=== PATIENT | female | born 1980 | race Two or more races ===

== ENCOUNTER 2024-02-26 15:21 | Outpatient (AMB) | payer OTHER, SELFPAY ==
--- NOTE | 2024-02-26 15:24 | MHC.OFFVISWM ---
VS Expanded 02/26/24 15:33 BP 130/70 Blood Pressure Location Rt brachial Blood Pressure Position Sitting Pulse 85 Pulse Source Pulse Oximeter Temp 96.6 F L Temperature Source Temporal Artery Scan Pulse Oximetry 94 Oxygen Delivery Method Room Air Height 5 ft 2 in Weight 212 lb 12.8 oz BMI 38.9 Body Fat % 45.2 Body Fat Mass 96.2 Fat Free Mass 116.6 Visceral Fat Rating 12.0 Body Water % 39.2 Body Water Mass 83.4 Muscle Mass/Score 110.6 Basal Metabolic Rate/Score 1,648 Intake Visit Reasons: OV [employer] WORK[employer] SWL BMI 39.2 Patient Registration Clerk Required: No Allergies latex Allergy (Intermediate, Verified 02/26/24 15:35) rash Medication List - Last Reconciled 02/26/24 by KAYLA Cabrera albuterol sulfate 90 mcg/actuation (Ventolin HFA) 2 puffs inhalation QID PRN cholecalciferol (vitamin D3) (Vitamin D3) 25 mcg PO DAILY lisinopril-hydrochlorothiazide 10-12.5 mg 1 tab PO DAILY HPI Comments Details: Pt is here to start the [facility] Weight Management surgical weight loss program. She heard about our program on [employer]. Her goal is to lose weight and achieve a healthy lifestyle as well as to improve, if not resolve, obesity related medical conditions, including htn. She reports first being concerned about her weight over the last 5 years, highest weight to date was 230. Current weight is 212.8 pounds with a BMI of 39. She has tried multiple methods of weight loss including fad diets without permanent results. She lives with her and kids. 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 She wakes at:?6 am, and goes to bed at?10 pm. Dinner is at 5 pm. Breakfast: HB eggs or oatmeal or bagel w creamcheese AM snack: coffee w LF milk and glenn sweetener, chicken bowl or inst rice w ramen noodle soup Lunch: tuna salad or crab salad or burger PM snack: granola bar or cookie Dinner: chicken bowl After dinner: skip Other snacks: candy, chips Liquids: 96 oz water, no soda, 8 oz apple juice Alcohol/marijuana/tobacco intake: no etoh, smoke cannabis nightly, 5 cigarettes daily Exercise: stationary bike at home, gym membership at . GERD score: 7 CAROLINE score: 9 ESS score: 6 QOL score: 95 [facility] Surgical History (Updated 02/26/24 @ 15:37 by Chiara Bradshaw CMA) Hx of tubal ligation Hx of umbilical hernia repair Social History Alcohol intake: never Patient Tobacco Use Status: Never used Tobacco Physical Exam Const General: cooperative, healthy appearing and no acute distress Orientation/consciousness: patient oriented x3 HEENT Head: Yes normal to inspection Ears: hearing grossly normal bilaterally General nose exam: Normal external nose present Face and sinus: Yes normal facial exam Eyes General: appearance normal, both eyes and all related structures Resp Effort & Inspection: normal respiratory effort Auscultation: clear to auscultation bilaterally Cardio Rate: regular rate Rhythm: regular rhythm Heart sounds: S1 normal heart sound present and S2 normal heart sound present GI Inspection: Yes normal to inspection, No distended and Yes obesity Palpation (GI): Soft to palpation, nontender and no guarding Auscultation: normal bowel sounds Skin General skin exam: no rashes or lesions noted Neuro General: patient oriented x3 Extrem General: No edema Psych Appearance: grossly normal Mental Status: mental status grossly normal Speech and movement: Normal speech and movement present Affect: normal affect Attitude: cooperative Assessment & Plan Assessment & Plan (1) Obesity (BMI 30-39.9): Code(s): E66.9 - Obesity, unspecified Category: Medical Plan: This is a?43 yo female who will start our SWL program to prepare for bariatric surgery.? Blood work, CXR, ECG, Abd US and UGI have been ordered. She is being scheduled for initial consultations. She will start SWL classes and watch the first three videos before her next appointment. 1. You have been given a paper with a link to our software dominique ([email or web address]) to generate an individualized nutritional and exercise plan specific for you. Please send me a screenshot of the plans you will generate Meal to include lean meat (beef, fish, pork, turkey, chicken), or amharic yogurt, or egg whites, or beans with a salad with olive oil and fruits (berries, pears, apples, kiwi). Avoid salt, breads, potatoes, rice, pasta, desserts. 2. If you choose shakes, each shake would be drunk slowly, like coffee over a period of 2 hours. 3. If you choose bars, cut each bar in 4 pieces and eat each piece in 30 min to make each bar last 2 hours. 4. I emphasized the importance of measuring accurately the food portion and measure it when serving the food on a plate 5. The meal portions include a specific number of forks of meat (protein) and salad. You always eat the meat portion but you can replace up to half of salad/vegetables portion with rice, potatoes or pasta, or a fruit ?if you like. The less you do it the better weight loss will be. 6. One full-size fork is what can be scooped on the fork without falling aside and not what can be bit with the fork. Use regular forks like those you find in a typical restaurant. 7.? Please send me weight measurements from your body composition scale as soon as possible and then once a week. Always include your diet and exercise plan. The best time to weigh yourself is first thing in the morning after going to the bathroom. 8. The best choice for exercise would be stationary bike, as well as other cardio equipment at [employer] [facility]. . Alternatively start walking outside daily, tracking calories with a goal of 300 calories per day, daily. You can download the dominique Sk[employer] which can track your time, distance and calories while walking outside. You press start in the dominique when you start and then stop when you are finished. 9.?Goal is to lose at least 1.5-2 lbs per week, and about 10% before surgery, which is about 21 pounds 10. Please follow the diet plan exactly without any change. If you don't like something about the plan or you feel hungry you need to communicate with me so I can help you revise the plan. My cell phone number to communicate with me by text is [phone] Patient is morbidly obese and is not considered stable at this time.?I spent a total of 70 minutes reviewing/updating records, examining the patient and counseling the patient on weight management as detailed above. Orders: Orders Lipid Panel Today E61.1 - Iron deficiency, E66.9 - Obesity, unspecified, I10 - Essential (primary) hypertension IRON PROFILE Today E61.1 - Iron deficiency, E66.9 - Obesity, unspecified, I10 - Essential (primary) hypertension Comprehensive Met. Panel Today E61.1 - Iron deficiency, E66.9 - Obesity, unspecified, I10 - Essential (primary) hypertension Vitamin B12 and Folate Today E61.1 - Iron deficiency, E66.9 - Obesity, unspecified, I10 - Essential (primary) hypertension C Reactive Protein Today E61.1 - Iron deficiency, E66.9 - Obesity, unspecified, I10 - Essential (primary) hypertension Vitamin B1 Today E61.1 - Iron deficiency, E66.9 - Obesity, unspecified, I10 - Essential (primary) hypertension Vitamin A Today E61.1 - Iron deficiency, E66.9 - Obesity, unspecified, I10 - Essential (primary) hypertension TSH reflex Free T4 Today E61.1 - Iron deficiency, E66.9 - Obesity, unspecified, I10 - Essential (primary) hypertension Vitamin D 25-OH Total Today E61.1 - Iron deficiency, E66.9 - Obesity, unspecified, I10 - Essential (primary) hypertension US abdomen comp w elastography Today E61.1 - Iron deficiency, E66.9 - Obesity, unspecified, I10 - Essential (primary) hypertension ECG 12 lead EKG Today E61.1 - Iron deficiency, E66.9 - Obesity, unspecified, I10 - Essential (primary) hypertension Insulin Today E61.1 - Iron deficiency, E66.9 - Obesity, unspecified, I10 - Essential (primary) hypertension Hemoglobin A1c Today E61.1 - Iron deficiency, E66.9 - Obesity, unspecified, I10 - Essential (primary) hypertension Complete Blood Count Auto Diff Today E61.1 - Iron deficiency, E66.9 - Obesity, unspecified, I10 - Essential (primary) hypertension Zinc Today E61.1 - Iron deficiency, E66.9 - Obesity, unspecified, I10 - Essential (primary) hypertension Ferritin Today E61.1 - Iron deficiency, E66.9 - Obesity, unspecified, I10 - Essential (primary) hypertension XR chest 2V Today E61.1 - Iron deficiency, E66.9 - Obesity, unspecified, I10 - Essential (primary) hypertension FL upper GI w air Today E61.1 - Iron deficiency, E66.9 - Obesity, unspecified, I10 - Essential (primary) hypertension Referrals Behavioral Health Referral E61.1 - Iron deficiency, E66.9 - Obesity, unspecified, I10 - Essential (primary) hypertension
[2024-02-26 15:33] VITALS: BP 130/70; PULSE 85; TEMP 35.9; O2SAT 94; BMI 38.9
== END 2024-02-26 16:06 | disposition home or self-care (01) ==
PROVIDERS: Visit Provider Physician Assistant Surgical
DX: E66.9 Obesity, unspecified (principal); Z68.38 Body mass index [BMI] 38.0-38.9, adult
CPT/HCPCS: 99205

== ENCOUNTER → 2024-02-26 15:21 | Outpatient (BNVA) | payer OTHER, SELFPAY | PROVIDERS: Visit Provider Physician Assistant Surgical | DX: E66.9 Obesity, unspecified (principal); Z68.38 Body mass index [BMI] 38.0-38.9, adult | CPT/HCPCS: 99202 ==

== ENCOUNTER 2024-03-05 13:12 | Outpatient (REF) | payer OTHER, SELFPAY ==
--- NOTE | ~2024-03-05 | XR_ITS ---
EXAMINATION: XR CHEST CLINICAL INFORMATION: Obesity COMPARISON: None available. TECHNIQUE: 2 views of the chest were obtained. FINDINGS: No significant abnormality is noted involving the heart, lungs, mediastinum, bony thorax or soft tissues. XR/XR chest 2V IMPRESSION: No acute cardiopulmonary disease. Electronically signed by: Sravanthi Bowers MD 03/26/2024 02:39 PM EDT RP
--- NOTE | ~2024-03-05 | US_ITS ---
EXAMINATION: US COMPLETE ABDOMEN WITH LIVER ELASTOGRAPHY CLINICAL INFORMATION: Obesity. COMPARISON: None available. TECHNIQUE: Real-time imaging of the abdominal viscera. Noninvasive ultrasound liver fibrosis assessment is performed using Santy ElastPQ point quantification shear wave elastography (pSWE) with a C5-2 MHz transducer. Multiple elastography samples are obtained. FINDINGS: PANCREAS: The pancreas appears unremarkable, without masses or ductal dilatation, with the exception of the tail which is obscured by bowel gas. ABDOMINAL AORTA: The proximal, middle, and distal aortic segments are normal in caliber. INFERIOR VENA CAVA: Visualized portions are normal. LIVER: There is borderline increased hepatic echogenicity. The liver demonstrates normal size and contour. No focal lesion or intrahepatic biliary duct dilatation. The right lobe measures 15.7 cm in length. The left lobe measures 9.1 cm in length. Portal flow is towards. Shear wave liver elastography median stiffness is 1.1 m/s (reference: normal median stiffness is 1.3 m/s or less). IQR/median stiffness to assess sampling precision is 0.32 (reference: good quality data set is IQR/median stiffness of 0.15 or less). GALLBLADDER: Normal. The gallbladder is physiologically distended without evidence of stones, sludge, polyps, wall thickening or pericholecystic fluid. COMMON BILE DUCT: Normal in caliber measuring 0.5 cm in diameter. RIGHT KIDNEY: Normal. No hydronephrosis. No renal calculi or focal parenchymal lesions. The kidney measures 10.8 cm in maximum dimension. LEFT KIDNEY: Normal. No hydronephrosis. No renal calculi or focal parenchymal lesions. The kidney measures 10.1 cm in maximum dimension. SPLEEN: Normal. The spleen measures 9.5 cm in maximum dimension. FREE FLUID: None. US/US abdomen comp w elastography IMPRESSION: 1. Borderline increased hepatic echogenicity. 2. Liver elastography: Although measurements suggest a high probability of normal liver stiffness, there is statistical variability of the sampling which decreases accuracy. REFERENCE: Society of Radiologists in Ultrasound Liver Stiffness Thresholds (2020): LIVER STIFFNESS THRESHOLDS: *Liver Stiffness equal or less than 1.3 m/s: High probability of being normal. *Liver Stiffness less than 1.7 m/s: In the absence of other known clinical signs, rules out compensated advanced chronic liver disease. *Liver Stiffness 1.7-2.1 m/s: Suggestive of compensated advanced chronic liver disease but need further test for confirmation. *Liver Stiffness over 2.1 m/s: Rules in compensated advanced chronic liver disease. *Liver Stiffness over 2.4 m/s: Suggestive of clinically significant portal hypertension. QUALITY OF DATA SET: *IQR/Median value equal or less than 0.15 implies a quality data set. *IQR/Median value over 0.15 implies a poor quality data set. SIGNIFICANT CHANGE FROM PRIOR EXAM: Significant change if liver stiffness measurement is 10% or greater from prior exam. OTHER CONSIDERATIONS: The stage of liver fibrosis may be overestimated in the setting of acute hepatitis, liver inflammation, elevated liver function tests, hepatic vascular congestion, obstructive cholestasis, non-fasting state, and infiltrative diseases such as amyloidosis and lymphoma. In some patients with NAFLD, the liver stiffness thresholds for compensated advanced chronic liver disease may be lower. In causes other than viral hepatitis and NAFLD, liver stiffness thresholds are not well established. Electronically signed by: Kev Anton MD 03/11/2024 03:09 PM EDT
--- NOTE | 2024-03-05 13:22 | ECG_ITS ---
Test Reason : e66.01 Blood Pressure : / mmHG Vent. Rate : 057 BPM Atrial Rate : 057 BPM P-R Int : 166 ms QRS Dur : 090 ms QT Int : 412 ms P-R-T Axes : 046 032 029 degrees QTc Int : 401 ms Sinus bradycardia Septal infarct , age undetermined Abnormal ECG No previous ECGs available Referred By: Yung Yadav Electronically Signed By:ENOC TADEO
[2024-03-05 13:44] LABS: MANUAL DIFF FLAG NO
[2024-03-05 14:33] LABS: Basophils Percent Auto 0.3 % (0-2); Eosinophils Absolute Auto 0.1 X10*3/uL (0.0-0.4); Eosinophils Percent Auto 0.7 % (0-4); Hematocrit 36.3 % (37.0-47.0); Hemoglobin 12.2 g/dl (12.0-16.0); Imm Gran Abs Auto 0.03 X10*3/uL (0.00-0.03); Imm Gran Pct Auto 0.3 % (0.0-0.4); Lymphocytes Absolute Auto 2.9 X10*3/uL (1.2-4.9); Lymphocytes Percent Auto 30.3 % (20-40); Mean Corpuscular HGB Conc 33.6 g/dl (31.0-35.0); Mean Corpuscular Hemoglobin 29.9 pg (27.0-33.0); Monocytes Absolute Auto 0.7 X10*3/uL (0.1-1.2); Monocytes Percent Auto 7.2 % (2-11); Neutrophils Absolute Auto 5.8 x10*3/uL (2.0-8.3); Neutrophils Percent Auto 61.2 % (45-73); Platelet Count 332 X10*3/uL (160-400); Red Blood Count 4.08 X10*6/uL (4.20-5.50); Red Cell Distribution Width 13.3 % (11.0-16.0); White Blood Count 9.5 X10*3/uL (4.8-10.8)
[2024-03-05 14:44] LABS: Estimated Average Glucose 103 mg/dL; Hemoglobin A1c % 5.2 % (<6.0)
[2024-03-05 15:09] LABS: Alanine Aminotransferase 14 U/L (0-31); Alkaline Phosphatase 52 U/L (39-117); Anion Gap 9 (12-20); Aspartate Amino Transferase 19 U/L (5-31); Bilirubin Total 0.3 mg/dL (0.0-1.0); Blood Urea Nitrogen 14 mg/dL (9-16); C Reactive Protein 0.21 mg/dL (< or = 0.50); Calcium 9.4 mg/dL (8.4-10.2); Carbon Dioxide 27 mmol/L (22-29); Chloride 109 mmol/L (96-108); Cholesterol 153 mg/dL (<200); Estimated Glomerular Filt Rate > 60; Glucose Random 81 mg/dL (60-115); HDL Cholesterol 40 mg/dL (>40); Iron 38 mcg/dL (30-160); LDL Cholesterol Calculated 103 mg/dL (<100); Percent Iron Saturation 13 % (15-50); Potassium 3.8 mmol/L (3.3-5.1); Sodium 141 mmol/L (135-145); Total Iron Binding Capacity 288 mcg/dL (228-428); Total Protein 7.2 g/dL (6.5-8.0); Triglycerides 51 mg/dL (<150); Unsaturated Iron Binding 250 ug/dL
[2024-03-05 15:26] LABS: Ferritin 39 ng/mL (10-250); Insulin 5 uU/mL (2-29); TSH reflex Free T4 1.41 uIU/mL (0.32-4.0); Vitamin D 25-OH Total 35.1 ng/mL (>30)
[2024-03-05 15:38] LABS: Folate 13.8 ng/mL (> or = 4.0); Vitamin B12 452 pg/mL (200-900)
[2024-03-09 12:08] LABS: Vitamin A 33 mcg/dL (38-98)
[2024-03-10 13:23] LABS: Vitamin B1 <6 nmol/L (8-30)
[2024-03-10 17:33] LABS: Zinc 69 mcg/dL (60-130)
== END 2024-03-05 13:13 | disposition home or self-care (01) ==
LOC: HO.US 13:12
PROVIDERS: Visit Provider Physician Assistant Surgical
DX: E66.09 Other obesity due to excess calories (principal); I10 Essential (primary) hypertension; E61.1 Iron deficiency
CPT/HCPCS: 36415; 71046; 76700; 76981; 80053; 80061; 82306; 82607; 82728; 82746; 83036; 83525; 83540; 84425; 84443; 84590; 84630; 85025; 86140; 93005

== ENCOUNTER 2024-03-25 13:11 | Outpatient (AMB) | payer OTHER, SELFPAY ==
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
--- OUTSIDE RECORDS SUMMARY | 2024-03-25 13:13 | XMS_ITS | Continuity of Care Document ---
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 urologist in the past year but she is not followed by [facility] and she did not recall who her urologist was.?? Patientstates she is still having pain this morning.?? She admits to both passing stones and having surgery in the past to remove them. Review of Systems Constitutional:??No weight loss, fever, chills, weakness or fatigue. Gastrointestinal:??No anorexia or diarrhea. No abdominal pain or blood in stool. Genitourinary:??No burning micturition. No urinary frequency or incontinence. ?? All other ROS otherwise negative or non-contributory?? Objective Vital Signs?? Temperature: 98.4 DegF (03/12/24 07:00:00) Temperature Route: Oral (03/12/24 07:00:00) Pulse Rate:??53 bpm??Low (03/12/24 07:00:00) Respiratory Rate:??15 br/min??Low (03/12/24 09:04:00) Systolic Blood Pressure: 112 mm Hg (03/12/24 09:02:00) Diastolic Blood Pressure: 79 mm Hg (03/12/24 09:02:00) Blood pressure sites: Arm, left (03/12/24 07:00:00) Mean Arterial Pressure: 79 mm Hg (03/12/24 03:29:00) Pulse Pressure: 40 mm Hg (03/12/24 03:29:00) Oxygen Saturation: 100 % (03/12/24 07:00:00) Mode of Delivery (Oxygen): Room air (03/12/24 07:00:00) Early Warning Score: 1 (03/12/24 09:09:59) ? Intake/Output? 03/11 11:57 03/12 07:00 03/11 07:00 03/10 07:00 03/09 07:00 ?? 03/12 10:49 03/12 10:49 03/12 06:59 03/11 06:59 03/10 06:59 Intake ?375 ?0 ?375 ?0 ?0 Output ?0 ?0 ?0 ?0 ?0 Net Total ?375 ?0 ?375 ?0 ?0 ? Urine Count ?1 ?0 ?1 ?0 ?0 ? Physical Exam Constitutional: Alert, in no distress. Head: Normocephalic. Respiratory: Non-labored breathing Cardiovascular: Regular rate Gastrointestinal: Abdomen soft, non-tender, non-distended.?? No pulsatile mass. Genitourinary: No costovertebral angle tenderness Skin: Warm, no pallor ? Imaging Result type:?CT Abdomen and Pelvis W/O Contrast Result date:?March 11, 2024 16:43 EDT Result status:?Auth (Verified) Result title:?CT Abdomen and Pelvis W/O Contrast Performed by:?Tiffany Portillo MD on March 11, 2024 17:45 EDT Verified by:?Lindsey QUIGLEY, Tiffany on March 11, 2024 17:45 EDT Encounter info:?[id number], [facility], Observation, 03/11/2024 -? * Final Report * ?? Reason For Exam Flank pain, kidney stone suspected;Other: ?? RESULT: CT Abdomen and Pelvis W/O Contrast CT Abdomen and Pelvis W/O Contrast? Hx of Present Illness: R Flank Pain; Reason: Other:; Flank pain, kidney stone suspected; Clinical Question(s): Calculus; Right Side flank; Order Comment: ?? TECHNIQUE: Spiral CT through the abdomen and pelvis without IV contrast formatted in 3 planes. Thisstudy was performed without oral contrast. Weight- based protocol using automatic tube modulation was used to optimize exposure parameters.? CTDIvol Body: 10.70 mGy, ??DLP Body: 494 mGy*cm. ? COMPARISON: 05/05/2021 ?? FINDINGS:? Bindery Manager View Findings, Lines and Tubes: None. ?? Visualized Chest: Lung bases are without consolidation or pleural effusion. ?? Diaphragm: Partially seen diaphragm is unremarkable. ?? Liver: The visualized portion is normal. ?? Gallbladder: No CT evidence of gallbladder pathology. ?? Bile ducts: No biliary ductal dilation. ?? Spleen: The visualized portion is normal. ?? Pancreas: No peripancreatic stranding or fluid. No ductal dilatation. ?? Adrenal glands: No mass or thickening. ?? Kidneys and ureters: There is severe hydroureteronephrosis, slightly decreased compared to April2021 at the right kidney. There is an obstructing 4 mm calculus at the mid ureter seen at series 201 image 44 which is similar and location to the 2020 exam, compared to previous exam series 201 image 64. No additional renal calculi. No left-sided hydroureteronephrosis. No noncontrast evidence of solid renal mass. ?? Bladder: Normal. ?? Reproductive organs: Fluid attenuation area seen in the posterior right pelvis could represent ovarian follicles or hydrosalpinx. This is ovoid in shape and measures up to 5.1 x 2.6 centers. No regional inflammatory stranding. No free fluid. ?? Stomach, small bowel, and large bowel: No bowel obstruction. ?? Appendix: Normal. ?? Peritoneum and retroperitoneum: No ascites or pneumoperitoneum. No omental or mesenteric lesions. ?? Lymph nodes: No enlarged lymph nodes. ?? Blood vessels: Normal. No aneurysm. ?? Abdominal and pelvic wall: Unremarkable. ?? Bones: No acute abnormality. ?? IMPRESSION:? Severe right-sided hydroureteronephrosis with an obstructing 4 mm calculus in the mid right ureter. The degree of hydroureteronephrosis is slightly decreased compared to 202. The size and appearance of the stone, as well as location in mid ureter, is similar to the 202 exam. Consider this could represent ongoing obstruction versus interval recurrence. ?? Ovoid in shape low attenuation area seen in the posterior right pelvis could represent dominant cyst/follicle or hydrosalpinx. No inflammatory stranding. This measures up to 5.1 cm and is most likely benign. Per current guidelines: However, because of its size >5 cm, a follow-up ultrasound at 6-12 weeks is recommended. A correlate for this finding is not seen on the ultrasound exam of 2021. CITATION:?? Recommendations for adnexal lesion management based on Gr, et al., J Am [place] Radiol 10:675-81 (2013). ? Findings relayed to ordering physician Dr. Friend at 1708 on day of exam.? WSN: [id number] ? Ordering Physician: Luis Friend? Assessment/Plan Diagnoses Acute right flank pain ??(R10.9) Hydroureteronephrosis ??(N13.30) Hypertension ??(I10) Hypokalemia ??(E87.6) Kidney stone ??(N20.0) ?? Assessment:? The patient is a 43-year-old female with past medical history as noted above.??She presented with right flank pain secondary to an obstructing stone in the mid right ureter that may be present since 2020.??She is hemodynamically stable.??We discussed surgery versus MET for management of her stone.??Patient elects to move forward with surgery.??She is NPO and can remain so for attempted stone removal today via ureteroscopy and laser lithotripsy.??If the stone is impacted or it is otherwise unsafe to treat the stone, a ureteral stent will be placed.??Urology will continue to follow.? Patient case reviewed by and was seen with attending physician??Dr. Gabino Soto Histories Allergies Allergies ?(Active and Proposed Allergies Only) Latex? (Severity: Unknown severity, Onset: Unknown) ?Reactions: Rash ? Past Medical History/Problem List Active Problems(11) Anxiety Calculus, renal Chronic pelvic pain Depression LBP - Low back pain Migraines Mixed Incontinence (Female) (Male) Moderate Dysplasia of Cervix Obese class II Obstructive nephropathy Scoliosis ? Past Surgical History Placement of ureteral stent, percutaneous, including diagnostic nephrostogram and/or ureterogram when performed, imaging guidance (eg, ultrasound and/or fluoroscopy), and all associated radiological supervision and interpretation; pre-existing nephrostomy: 08/08/20 LEEP Umbilical hernia repair Essure bilateral inguinal hernia repair ? Social History Alcohol Details:??Use: Never. Employment/School Details:??Status: Employed. 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 Exercise Details:??Self assessment: Poor condition. Home/Environment Details:??Living situation: Home/Independent. ??Lives with: Children. Details:??Living situation: Home/Independent. ??Lives with: Children, Lives with 4 children (teenagers) + 3.5 grandbabies. Nutrition/Health Details:??Diet: Regular. Sexual Details:??Sexually involved in last 6 months: No. Substance Abuse Details:??Use: Past. ??Type: Cocaine, Marijuana. ??Other: occasional cannabis for sleep. Tobacco Details:??Use: 4 or less cigarettes(less than 1/4 pack)/day in last 30 days. ??Interested in cessation: Yes. Details:??Use: 4 or less cigarettes(less than 1/4 pack)/day in last 30 days. Electronic Cigarette/Vaping Details:??Electronic Cigarette Use: Never. ? Family History Mother: Bipolar; Diabetes mellitus type II; Hypertension Father: Arthritis; Cancer of colon Sister: Anxiety ? 15-SEP-2014 21:11:46<$>; Bipolar Sister: Anxiety ? 15-SEP-2014 21:11:46<$>; Bipolar Brother: Anxiety ? 08-MAR-2014 21:11:46<$>; Bipolar Brother: Anxiety ? 08-MAR-2014 21:11:46<$>; Bipolar; Seizure ? Medications Home Medications Cholecalciferol (cholecalciferol 50 mcg (2000 intl units) oral tablet, chewable)?1?tab(s)?50?Microgram?By Mouth?Daily Hydrochlorothiazide-Lisinopril (hydrochlorothiazide-lisinopril 12.5 mg-10 mg oral tablet)?1?tab(s)?By Mouth?Daily ? Inpatient Medications Medications (16) Active SCHEDULED: (6) Fluzone Trivalent (6mo ??? 64yr) Inj 0.5mL (Influenza, Trivalent Vaccine) ??0.5 mL, Intramuscular, Once Lisinopril 10 mg Tablet (lisinopril 10 mg oral tablet) ??10 mg, By Mouth, Daily NaCl 0.9% Flush 3ml (NaCL 0.9% Flush) ??3 mL, IV Push, Every 8 hours Tamsulosin 0.4 mg Capsule (Flomax 0.4 mg oral capsule) ??0.4 mg, By Mouth, Daily Vitamin B-12 ??1000 mcg Tablet (Vitamin B12 1000 mcg oral tablet) ??1,000 mcg, By Mouth, Daily Vitamin D 1000 IU Tablet (Cholecalciferol Tablet) ??1,000 International_Units, By Mouth, Daily CONTINUOUS: (1) NaCL 0.9% (1000 mL) Cont IV 1,000 mL (0.9% NaCL 1,000 mL) ??1,000 mL, IV Infusion, 75 mL/hr PRN: (9) Acetaminophen 325 mg Tablet (Acetaminophen Tablet) ??650 mg, By Mouth, Every 4 hours Dextromethorphan-Guaifenesin 20 mg-200 mg/10 mL Liqu UD (Robitussin DM Liquid) ??10 mL, By Mouth, Every 4 hours Docusate Sodium 100 mg Capsule (Docusate Sodium Capsule) ??100 mg 1 capsule, By Mouth, 2 times a day Melatonin 3 mg Tablet (Melatonin Tablet) ??3 mg, By Mouth, Daily at bedtime MorPHINE 4 mg Inj Syringe (MorPHINE Inj) ??4 mg, IV Push Slowly, Every 4 hours NaCl 0.9% Flush 3ml (NaCL 0.9% Flush) ??3 mL, IV Push, Every 8 hours Polyethylene Glycol 17 Gm Powder (MiraLax Powder) ??17 Gm 1 pack/packet, By Mouth, Daily Senna Tablet ??8.6 mg 1 tablet, By Mouth, 2 times a day Simethicone 80 mg Chewable Tablet (Simethicone Tablet) ??80 mg, Chew, 3 times a day ? Results Recent Labs BLOOD COUNT & DIFF WBC 9.8 k/mm3 ()?? 03/12/2024 04:24 RBC 3.95 m/mm3 (Low)?? 03/12/2024 04:24 Hgb 11.5 Gm/dL (Low)?? 03/12/2024 04:24 Hct 35.0 % (Low)?? 03/12/2024 04:24 MCV 88.6 femtoliters ()?? 03/12/2024 04:24 MCH 29.1 pg ()?? 03/12/2024 04:24 MCHC 32.9 g/dL (Low)?? 03/12/2024 04:24 Platelet Count 285 k/mm3 ()?? 03/12/2024 04:24 RDW-SD 43.8 femtoliters ()?? 03/12/2024 04:24 MPV 9.8 femtoliters ()?? 03/12/2024 04:24 Nucleated RBC (Automated) 0.0 #/100 WBC'S ()?? 03/12/2024 04:24 Abs. NRBC 0.0 k/mm3 ()?? 03/12/2024 04:24 Abs. Neut 4.5 k/mm3 ()?? 03/12/2024 04:24 Abs. Lymph 4.1 k/mm3 (High)?? 03/12/2024 04:24 Abs. [place] 1.0 k/mm3 (High)?? 03/12/2024 04:24 Abs. Eo 0.2 k/mm3 ()?? 03/12/2024 04:24 Abs. Baso 0.0 k/mm3 ()?? 03/12/2024 04:24 Neut % 45.8 % ()?? 03/12/2024 04:24 Lymph % 41.5 % ()?? 03/12/2024 04:24 [place] % 10.5 % ()?? 03/12/2024 04:24 Eos % 1.5 % ()?? 03/12/2024 04:24 Baso % 0.4 % ()?? 03/12/2024 04:24 Imm Gran 0.3 % ()?? 03/12/2024 04:24 Abs. Imm Gran 0.0 k/mm3 ()?? 03/12/2024 04:24 ?? CHEM GENERAL Sodium 134 mmol/L ()?? 03/12/2024 04:24 Potassium 3.7 mmol/L ()?? 03/12/2024 04:24 Chloride 102 mmol/L ()?? 03/12/2024 04:24 Bicarbonate Level 23 mmol/L ()?? 03/12/2024 04:24 Anion Gap 9 ()?? 03/12/2024 04:24 Glucose Level 82 mg/dL ()?? 03/12/2024 04:24 BUN 20 mg/dL ()?? 03/12/2024 04:24 Creatinine-Blood 0.68 mg/dL ()?? 03/12/2024 04:24 Estimated GFR Creatinine 112 ML/MIN/1.73 M2 ()?? 03/12/2024 04:24 Calcium 8.8 mg/dL ()?? 03/12/2024 04:24 Alkaline Phosphatase 49 units/L ()?? 03/11/2024 16:00 Lipase 14 units/L ()?? 03/11/2024 16:00 AST (SGOT) 24 units/L ()?? 03/11/2024 16:00 ALT (SGPT) 15 units/L ()?? 03/11/2024 16:00 Bilirubin, Total 0.5 mg/dL ()?? 03/11/2024 16:00 Lactate 0.9 mmol/L ()?? 03/11/2024 16:00 ?? UA/URINALYSIS Appear/Color, Urine LIGHT YELLOW ()?? 03/11/2024 13:33 Specific [place], Urine 1.024 ()?? 03/11/2024 13:33 pH, Urine 6.5 ()?? 03/11/2024 13:33 Albumin, Urine TRACE (Abnormal)?? 03/11/2024 13:33 Glucose, Urine NEGATIVE ()?? 03/11/2024 13:33 Ketones, Urine 1+ (Abnormal)?? 03/11/2024 13:33 Bilirubin, Urine NEGATIVE ()?? 03/11/2024 13:33 Hemoglobin, Urine 2+ (Abnormal)?? 03/11/2024 13:33 Nitrite, Urine NEGATIVE ()?? 03/11/2024 13:33 Leukocyte, Urine NEGATIVE ()?? 03/11/2024 13:33 Urobilinogen NORMAL mg/dL ()?? 03/11/2024 13:33 WBC's, Urine 2 /HPF ()?? 03/11/2024 13:33 RBC's, Urine 47 /HPF (High)?? 03/11/2024 13:33 Squamous Epith 2 /HPF ()?? 03/11/2024 13:33 Mucus MODERATE /LPF ()?? 03/11/2024 13:33 ?? URINE OTHER Urine, NEGATIVE (N)?? 03/11/2024 13:33 Est Creatinine Clearance 90.03 mL/min ()?? 03/12/2024 05:20 ? Urinalysis Albumin, Urine: TRACE Abnormal (13:33) Appear/Color, Urine: LIGHT YELLOW (13:33) Bilirubin, Urine: NEGATIVE (13:33) Est Creatinine Clearance: 90.03 mL/min (05:20) Est Creatinine Clearance: 97.18 mL/min (16:57) Glucose, Urine: NEGATIVE (13:33) Hemoglobin, Urine: 2+ Abnormal (13:33) Ketones, Urine: 1+ Abnormal (13:33) Leukocyte, Urine: NEGATIVE (13:33) Mucus: MODERATE (13:33) Nitrite, Urine: NEGATIVE (13:33) pH, Urine: 6.5 (13:33) RBC's, Urine:??47 /HPF??High (13:33) Specific [place], Urine: 1.024 (13:33) Squamous Epith: 2 /HPF (13:33) Urine, : NEGATIVE (13:33) Urobilinogen: NORMAL (13:33) WBC's, Urine: 2 /HPF (13:33) ? * Gabino Soto MD: PERFORM Event Display: Consultation Note Authored Date: The patient was independently examined and evaluated * Gabino Soto MD: PERFORM Event Display: Consultation Note Authored Date: History of Present Illness The patient presents with right flank pain that started yesterday morning. They describe the pain as being associated with pressure during urination, but deny hematuria. They also experienced shakiness yesterday, but deny fever. They have a history of kidney stones, some of which required surgical intervention. The most recent procedure was performed last year by [facility]. ?? Past Medical History - History of kidney stones (3 years ago and last year) - 4 mm stone in right ureter causing obstruction ?? Results LABS Urinalysis: No infection (03/11/2024) ?? RADIOLOGY CT scan: 4 mm stone in the right ureter causing obstruction (03/11/2024) ?? Assessment & Plan Right Ureteral Stone 4mm stone causing obstruction and pain. History of previous stones requiring surgical intervention.No signs of infection in urine. -Schedule cystoscopy and ureteroscopy to break up the stone with a laser. Note * Rico Kim RN: PERFORM Event Display: Discharge/Transfer Note Hospital Authored Date: [id number] Nursing Discharge Note Entered On: 03/13/2024 16:13 EDT Performed On: 03/13/2024 16:13 EDT by Rico Kim RN Nursing Discharge Note 2 Discharge Time : 03/13/2024 8:45 EDT Discharge Level of Care at Discharge : Home/Usp/Foster Care Patient Left Unit Via : Ambulatory Patient Accompanied Off Unit with : Significant other DC Instructions Provided & Signed by Pt : Yes Patient Understands D/C Instructions : Yes Patient Instructions Discharge Signed : Yes Did Pt have Specialty Bed or Wound Vac : No Rico Kim RN - 03/13/2024 16:13 EDT * Brittney Cotton RN: PERFORM Event Display: Patient Education/Instruction Authored Date: [id number] Inpatient Adult Discharge Instructions. [address] [id number] Name: MARCIAL ESQUIVEL : 1980?? Visit: 03/11/2024 11:57?? Current Date: 03/13/2024 07:57 ?? Account: [id number]?? Inpatient Adult Discharge Instructions We would like to thank you for allowing us to assist you with your healthcare needs. The following includes patient education materials and information regarding your injury/illness. Our entire staffstrives to provide an excellent experience for our patients and their families. PLEASE ENSURE YOU FOLLOW-UP PER THE INSTRUCTIONS BELOW! ?? YOUR OPINION IS IMPORTANT TO US! Please complete the survey you may receive by mail or email. Your feedback will be used to make improvements to the healthcare experiences of our patients and their families. Surveys are administered by [employer] ?? If further treatment with your primary care physician or another doctor is recommended, it is important for you to keep the appointment. Call your primary care physician or return to the Emergency Department immediately if your condition worsens, fails to improve, or new symptoms develop. If you need to find a doctor, you can call [facility] for a referral at [phone] or toll free at [phone]) or log in to [email or web address].. ?? [facility], in keeping with [facility] guidance, no longer requires face masks for staff, patientsor visitors in most situations. Similiar to time spent indoors at other locations, there is the chance that you were exposed to repiratory viruses during your time with us (such as flu or COVID-19). If you develop symptoms concerning for a viral respiratory infection, please seek testing (and treatment if indicated) from your medical provider or home test kit. ?? You can view and manage your care through the patient portal or by using a health care dominique of your choosing. [employer] is a website that allows you to securely view your medical information including your hospital discharge summary, office visit summaries, medications and follow-up visits. You can also request appointments, renew medications, and request access to your medical information using a health care dominique of your choosing, or just ask a question. You can enroll at [email or web address] or register during your next office visit. You have been discharged from [facility], Patient Care Unit: D3B??. If you have any questions regarding these instructions, including results of studies pending, afteryou leave, please call us and we will be happy to assist you 14/01. [facility] Your Care Team Attending Physician Mirna Moura MD?? Consulting Providers Mirna Moura MD?? Discharging Providers Mirna Moura MD Reason for Your Visit Right flank pain?? Your Diagnosis Genitourinary Hydroureteronephrosis Hypertension Hypokalemia Kidney stone Tests Performed Below is a partial list of the tests performed during your hospitalization. You may have had other tests and procedures not included in this list. Please discuss all test results with your provider. Alk Phos ALT AST Basic Metabolic Panel BUN CBC w/ Differential COMPLETE URINALYSIS Creatinine Electrolytes Glucose Level Lactate Level Lipase Total Bilirubin URINE CT Abdomen and Pelvis W/O Contrast XR C-Arm < 1 Hour XR Urethrocystography Retrograde ALT?? AST?? Add On Lab Order?? Alk Phos?? BUN?? Basic Metabolic Panel?? Bilirubin Total (Total Bilirubin)?? CBC w/ Differential?? CT Abdomen and Pelvis W/O Contrast?? Complete Urinalysis?? Creatinine?? Electrolytes?? Glucose Level?? HCG Urine (URINE )?? Lactic Acid Level (Lactate Level)?? Lipase?? Urinalysis w/hold for Urine Culture?? C-Arm < 1 Hour?? Urethrocystography Retrograde?? Primary Care Provider Nancy Bui MD? Advance Directive Health Care Proxy on File Yes - Health Care Proxy Discharge Vitals Temperature: 97.7 DegF Height: 160 cm Pulse Rate:??50 bpm??Low Weight: 94.6 kg Respiratory Rate:??108 br/min??High Body Mass Index:??36.95 kg/m2??Critical Systolic Blood Pressure: 119 mm Hg Body surface area: 2.05 Diastolic Blood Pressure: 69 mm Hg ?? Oxygen Saturation: 99 % ?? Studies Pending All studies ordered during this hospital stay have been completed unless listed below. Please discuss all pending results with your provider listed above in these instructions. ?? Add On Lab Order?? HCG Urine ( Test Urine)?? Urinalysis w/hold for Urine Culture?? What to do next Instructions From Your Doctor Please take pain medication as prescribed, as needed for pain control Please ensure you drink plenty of fluids to avoid dehydration Follow-up with [facility]urology??as instructed, their office will contact you regarding a follow-up visit Make an appointment to follow-up with your primary care physician after discharge ?? Orders?? Diet Tolerated, ??03/12/24 15:44:00 EDT?? You Need to Schedule the Following Appointments Follow Up with??Carlos Caldera MD When:??Within 2 to 3 weeks Where: [address] [facility] [place] [address]- Follow Up with??Nancy Bui MD When:??Within 1 week: call to discuss follow up visit Where: [address] [place] [address]- Discharge Medications MARCIAL ESQUIVEL :1980 Visit Date:03/11/2024 Medications: Please continue your medications until treatment is completed or stopped by your provider. Medications not listed below should be discontinued. Discuss any questions related to medications with your provider. What How Much When Instructions Next Dose New Oxycodone (oxyCODONE 5 mg oral capsule) 1 capsule Oral Every 6 hours as needed for as needed for pain Duration: 3 Days Pickup at [facility] #[id number] as prescribed New Tamsulosin (Flomax 0.4 mg oral capsule) 0.4 Milligram Oral Daily Pickup at [facility] #[id number] 03/13 am Changed Cholecalciferol (cholecalciferol 50 mcg (2000 intl units) oral tablet, chewable) 1 tab(s) Oral Daily 03/14 am Changed Hydrochlorothiazide-Lisinopril (hydrochlorothiazide-lisinopril 12.5 mg- 10 mg oral tablet) 1 tab(s) Oral Daily 03/14 am Changed Ibuprofen (ibuprofen 800 mg oral tablet) 1 tab(s) Oral 3 times a day as needed for Pain , Moderate Duration: 10 Days Pickup at [facility] #[id number] as prescribed Unchanged Miscellaneous Rx (VITAMIN B-12 500 MCG TABS) 03/14 am Pharmacy Information [id number]: [address], [place] [id number] [phone] ?? What How Much When Comments Stop Taking Acetaminophen (Tylenol 325 mg oral capsule) 2 capsule Oral Every 4 hours as needed for as needed for pain Stop Taking Albuterol (Albuterol (Eqv-ProAir HFA)) Inhalation Every 6 hours Stop Taking Albuterol (albuterol CFC free 90 mcg/ inh inhalation aerosol) 2 puff(s) Inhalation 4 times a day as needed for for wheezing dispense brand as required by insurance ?? Stop Taking Diclofenac Topical (Voltaren 1% topical gel) 1 dominique Topically 4 times a day as needed for for pain Duration: 10 Days Stop Taking Durable Medical Equipment (Blood Pressure Monitor) See instructions check daily and when symptons ?? Stop Taking Durable Medical Equipment (Home Blood Pressure Monitor) See instructions Use as Directed by Provider ?? Stop Taking Hydrochlorothiazide (hydrochlorothiazide 12.5 mg oral tablet) 1 tab(s) Oral Daily Prescription Given During Visit Ibuprofen (ibuprofen 800 mg oral tablet) - 1 tablet = 800 mg, By Mouth, 3 times a day, # 30 tablet,0 Refills, [id number] [address] [phone]?? Oxycodone (oxyCODONE 5 mg oral capsule) - 1 capsule = 5 mg, By Mouth, Every 6 hours, # 12 capsule, 0 Refills, [id number] [address] [phone]?? Tamsulosin (Flomax 0.4 mg oral capsule) - 0.4 mg, By Mouth, Daily, # 30 tablet, 0 Refills, [id number] [phone]?? Laboratory Results Below is a partial list of the most recent Laboratory test results done prior to this discharge. You may have had other tests and procedures not included in this list. Please discuss all test resultswith your provider. Est Creatinine Clearance - 90.03 mL/min (03/12/2024) Alk Phos (03/11/2024) ???Alkaline Phosphatase - 49 units/L ALT (03/11/2024) ???ALT (SGPT) - 15 units/L AST (03/11/2024) ???AST (SGOT) - 24 units/L Basic Metabolic Panel (03/12/2024) ???Sodium - 134 mmol/L???Potassium - 3.7 mmol/L???Chloride - 102 mmol/L???Bicarbonate Level - 23 mmol/L???Anion Gap - 9???Glucose Level - 82 mg/dL???BUN - 20 mg/dL???Creatinine-Blood - 0.68 mg/dL???Estimated GFR Creatinine - 112 ML/MIN/1.73 M2???Calcium - 8.8 mg/dL BUN (03/11/2024) ???BUN - 16 mg/dL CBC w/ Differential (03/12/2024) ???WBC - 9.8 k/mm3???RBC - 3.95 m/mm3???Hgb - 11.5 Gm/dL???Hct - 35.0 %???MCV - 88.6 femtoliters???MCH - 29.1 pg???MCHC - 32.9 g/dL???Platelet Count - 285 k/mm3???RDW-SD - 43.8 femtoliters???MPV - 9.8 femtoliters???Nucleated RBC (Automated) - 0.0 #/100 WBC'S???Abs. NRBC - 0.0 k/mm3???Abs. Neut - 4.5 k/mm3???Abs. Lymph - 4.1 k/mm3???Abs. [place] - 1.0 k/mm3???Abs. Eo - 0.2 k/mm3???Abs. Baso - 0.0 k/mm3???Neut % - 45.8 %???Lymph % - 41.5 %???[place] % - 10.5 %???Eos % - 1.5 %???Baso % - 0.4 %???Imm Gran - 0.3 %???Abs. Imm Gran - 0.0 k/mm3 COMPLETE URINALYSIS (03/11/2024) ???Appear/Color, Urine - LIGHT YELLOW???Specific [place], Urine - 1.024???pH, Urine - 6.5???Albumin, Urine - TRACE???Glucose, Urine - NEGATIVE???Ketones, Urine - 1+???Bilirubin, Urine - NEGATIVE???Hemoglobin, Urine - 2+???Nitrite, Urine - NEGATIVE???Leukocyte, Urine - NEGATIVE???Urobilinogen - NORMAL???WBC's, Urine - 2 /HPF???RBC's, Urine - 47 /HPF???Squamous Epith - 2 /HPF???Mucus - MODERATE Creatinine (03/11/2024) ???Creatinine-Blood - 0.63 mg/dL???Estimated GFR Creatinine - 114 ML/MIN/1.73 M2 Electrolytes (03/11/2024) ???Sodium - 135 mmol/L???Potassium - 3.5 mmol/L???Chloride - 103 mmol/L???Bicarbonate Level - 22 mmol/L???Anion Gap - 10 Glucose Level (03/11/2024) ???Glucose Level - 79 mg/dL Lactate Level (03/11/2024) ???Lactate - 0.9 mmol/L Lipase (03/11/2024) ???Lipase - 14 units/L Total Bilirubin (03/11/2024) ???Bilirubin, Total - 0.5 mg/dL URINE (03/11/2024) ???Urine, - NEGATIVE You will be contacted within 72 hours with your results. Immunizations This Visit Given Vaccine Date influenza virus vaccine, inactivated 03/13/2024 Allergies (NKA means No Known Allergies) Latex??(Rash) Problems Active Problems??(16) anemia?? Anxiety?? Calculus, renal?? Chronic pelvic pain?? Depression?? irritable bowel?? LBP - Low back pain?? 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 Migraines?? Mixed Incontinence (Female) (Male)?? Moderate Dysplasia of Cervix?? Obese class II?? Obstructive nephropathy?? polyp of vocal cord?? Scoliosis?? umbilical hernia repair 02/27?? Education Materials Below is the list of Educational Leaflet Providered with your Discharge Instructions. WebMD Ignite Patient Education - Zones Living Smoke Free?? Valuables and Belongings I fully understand and agree that [facility] accepts no responsibility for all my personal property including clothing, toilet articles, radios, jewelry, dentures, hearing aids, rings, money, or any other property that is in my possession or is brought to me after admission. I understand certain valuables may be placed in a hospital safe for a short period of time. I understand that the hospital is not liable for loss or damage due to accident, fire, or other natural occurrence while said property is in the safe. I accept full responsibility for any personal property that I keep with me, and will not hold the hospital responsible in case of loss or disappearance. I acknowledge that i have been encouraged to send valuables and belongings home. ?? Possessions released to: in preop pt came with bra and shirt and tongue piercing. Date for Pt to Sign Valuables/Belongings: 03/12/24 13:56:00 ?? Valuables & Belongings ?? Clothes Electronic devices Jewelry Monetary Items Personal devices Miscellaneous Medications (Valuables) Valuables at Bedside Pants, Shirt, Shoes, Undergarments Cell phone Earrings, Necklace, Wedding band Credit cards, Money, Purse, Wallet ? Valuables Sent Home ? Valuables Sent to Security ? Valuables Sent to Locker ? Other Discharge Information ? Pulmonary Rehab Status?? Pulmonary Rehab Discharge Status?? Respiratory Rate:??108 br/min??High ? Common Emergency Awareness Tips IS IT A STROKE? Act FAST and Check for these signs: FACE Does the face look uneven? ARM Does one arm drift down? SPEECH Does their speech sound strange? TIME Call at any sign of stroke ?? Heart Attack Signs Chest discomfort: Most heart attacks involve discomfort in the center of the chest and lasts more than a few minutes, or goes away and comes back. It can feel like uncomfortable pressure, squeezing, fullness or pain. Discomfort in upper body: Symptoms can include pain or discomfort in one or both arms, back, neck, jaw or stomach. Shortness of breath: With or without discomfort. Other signs: Breaking out in a cold sweat, nausea, or lightheaded. Remember, MINUTES DO MATTER. If you experience any of these heart attack warning signs, call to get immediate medical attention! ?? Smoking can increase your chances of developing chronic health problems and can cause harmful effects to other family members in your house. If you smoke, you are strongly encouraged to quit. Please call [facility] Link at [phone] or [phone] ([phone]) or log in to [email or web address] for referrals to smoking cessation programs. ?? 782 Suicide & Crisis Lifeline is available 14/01 if you or someone you know needs to find a reason to keep living. By calling 392 you'll be connected to a skilled, trained counselor at a crisis center in your area. INPATIENT DISCHARGE INSTRUCTIONS SIGNATURE PAGE SIERRAMARCIAL Location:[facility] Registration Date and Time:03/11/2024 11:57 EDT Primary Care Physician: Nancy Bui MD, Attending Physician: Zeny QUIGLEY, Mirna, I MARCIAL ESQUIVEL, have received the above patient education materials/instructions and have verbalized understanding. If ambulance or transport services are being used I further acknowledge being given a choice of service. ?? If you need to contact me, please call me at this number: . Patient/Repairer Kiln Car Name: Patient/Repairer Kiln Car Signature: Relationship to Patient: Witness Name/Signature: Date: * Brittney Cotton RN: PERFORM Event Display: Patient Education Leaflets Authored Date: [id number] Oxycodone ?? [id number] Oxycodone Brand Name(s): Oxaydo??, Oxycontin??, Roxicodone??, Roxybond??, Xtampza?? ER, Combunox?? (as a combination product containing Ibuprofen, Oxycodone), Narvox?? (as a combination product containing Acetaminophen, Oxycodone), Oxycet?? (as a combination product containing Acetaminophen, Oxycodone), Percocet?? (as a combination product containing Acetaminophen, Oxycodone), Percodan?? (as a combination product containing Aspirin, Oxycodone), Roxicet?? (as a combination product containing Acetaminophen, Oxycodone), Roxilox?? (as a combination product containing Acetaminophen, Oxycodone), Roxiprin?? (as a combination product containing Aspirin, Oxycodone), Targiniq?? ER (as a combination product containing naloxone, oxycodone), Troxyca ER?? (as a combination product containing Naltrexone, Oxycodone), Tylox?? (as a combination product containing Acetaminophen, Oxycodone), Xartemis XR?? (as a combination product containing Acetaminophen, Oxycodone); also available generically IMPORTANT WARNING: Oxycodone may be habit-forming. Take oxycodone exactly as directed. Do not take more of it, take itmore often, or take it in a different way than directed by your doctor. While taking oxycodone, discuss with your healthcare provider your pain treatment goals, length of treatment, and other ways tomanage your pain. Tell your doctor if you or anyone in your family drinks or has ever drunk large amounts of alcohol, uses or has ever used street drugs, or has overused prescription medications, or has had an overdose, or if you have or have ever had depression or another mental illness. There is a greater risk that you will overuse oxycodone if you have or have ever had any of these conditions.Talk to your healthcare provider immediately and ask for guidance if you think that you have an opioid addiction or call the U.S. Substance Abuse and Mental Health Services Administration (SAMHSA) National Helpline at 1-052-377-AHWY. Oxycodone may cause serious or life-threatening breathing problems, especially during the first 24 to 72 hours of your treatment and any time your dose is increased. Your doctor will monitor you carefully during your treatment. Tell your doctor if you have or have ever had slowed breathing or asthma. Your doctor will probably tell you not to take oxycodone. Also tell your doctor if you have or have ever had lung disease such as chronic obstructive pulmonary disease (COPD; a group of diseases that affect the lungs and airways), a head injury a brain tumor, or any condition that increases the amount of pressure in your brain. The risk that you will develop breathing problems may be higher if you are an older adult or are weak or malnourished due to disease. If you experience any of the following symptoms, call your doctor immediately or get emergency medical treatment: slowed breathing, long pauses between breaths, or shortness of breath. Do not allow anyone else to take your medication. Oxycodone may harm or cause to other peoplewho take your medication, especially children. Keep oxycodone in a safe place so that no one else can take it accidentally or on purpose. Be especially careful to keep oxycodone out of the reach of children. Keep track of how many capsules, tablets, or oral solution is left so you will know if any medication is missing. Taking certain other medications with oxycodone may increase the risk of serious or life-threatening breathing problems, sedation, or coma. Tell your doctor and pharmacist what other prescription andnonprescription medications, vitamins, nutritional supplements, and herbal products you are taking or plan to take. Your doctor may need to change the doses of your medication and will monitor you carefully. If you take oxycodone with other medications and you develop any of the following symptoms,call your doctor immediately or seek emergency medical care: unusual dizziness, lightheadedness, extreme sleepiness, slowed or difficult breathing, or unresponsiveness. Be sure that your caregiver orfamily members know which symptoms may be serious so they can call the doctor or emergency medical care if you are unable to seek treatment on your own. Drinking alcohol, taking prescription or nonprescription medications that contain alcohol, or usingstreet drugs during your treatment with oxycodone increases the risk that you will experience serious, life-threatening side effects. Do not drink alcohol, take prescription or nonprescription medications that contain alcohol, or use street drugs during your treatment. If you are taking the oxycodone extended-release tablets, swallow them whole; do not chew, break, divide, crush, or dissolve them. Do not presoak, lick or otherwise wet the tablet prior to placing inthe mouth. Swallow each tablet right after you put it in your mouth. If you swallow broken, chewed,crushed, or dissolved extended-release tablets, you may receive too much oxycodone at once instead of slowly over 12 hours. This may cause serious problems, including overdose and . Oxycodone comes as a regular solution (liquid) and as a concentrated solution that contains more oxycodone in each milliliter of solution. Be sure that you know whether your doctor has prescribed theregular or concentrated solution and the dose in milliliters that your doctor has prescribed. Use the dosing cup, oral syringe, or dropper provided with your medication to carefully measure the number of milliliters of solution that your doctor prescribed. Read the directions that come with your medication carefully and ask your doctor or pharmacist if you have any questions about how to measure your dose or how much medication you should take. You may experience serious or life threatening side effects if you take an oxycodone solution with a different concentration or if you take a different amount of medication than prescribed by your doctor. Store oxycodone in a safe place so that no one else can take it accidentally or on purpose. Be especially careful to keep oxycodone out of the reach of children. Keep track of how many tablets or capsules, or how much liquid is left so you will know if any medication is missing. Dispose of unwantedcapsules, tablets, extended-release tablets, extended-release capsules, and liquid properly according to instructions. (See STORAGE and DISPOSAL). Tell your doctor if you are or plan to become . If you take oxycodone regularly during your , your baby may experience life- threatening withdrawal symptoms after . Tellyour baby's doctor right away if your baby experiences any of the following symptoms: irritability, hyperactivity, abnormal sleep, high-pitched cry, uncontrollable shaking of a part of the body, vomiting, diarrhea, or failure to gain weight. Talk to your doctor about the risks of taking oxycodone. Your doctor or pharmacist will give you the director treasurer's patient information sheet (Medication Guide) when you begin your treatment with oxycodone and each time you fill your prescription. Read theinformation carefully and ask your doctor or pharmacist if you have any questions. You can also visit the Food and Drug Administration (FDA) website (https://www.fda.gov/Drugs/DrugSafety/fjh859329.htm) or the director treasurer's website to obtain the Medication Guide. WHY is this medicine prescribed? Oxycodone immediate-release tablets, capsules, and oral solution are used to relieve severe, acute pain (pain that begins suddenly, has a specific cause, and is expected to go away when the cause of the pain is healed) in people who are expected to need an opioid pain medication and who cannot be treated with other pain medications. Oxycodone extended-release tablets and extended-release capsulesare used to relieve severe pain in people who are expected to need pain medication around the clockfor a long time and who cannot be treated with other medications. Oxycodone extended-release tablets and extended-release capsules should not be used to treat pain that can be controlled by medication that is taken as needed. Oxycodone concentrated solution should only be used to treat people who are tolerant (used to the effects of the medication) to opioid medications because they have taken this type of medication for at least one week. Oxycodone is in a class of medications called opiate (narcotic) analgesics. It works by changing the way the brain and nervous system respond to pain. Oxycodone is also available in combination with acetaminophen (Oxycet, Percocet, others) and aspirin (Percodan). This monograph only includes information about the use of oxycodone alone. If you are taking an oxycodone combination product, be sure to read information about all the ingredients in the product you are taking and ask your doctor or pharmacist for more information. HOW should this medicine be used? Oxycodone comes as a solution (liquid), a concentrated solution, a tablet, a capsule, an extended-release (long-acting) tablet (Oxycontin), and an extended- release capsule (Xtampza ER) to take by mouth. The solution, concentrated solution, tablet, and capsule are taken usually with or without food every 4 to 6 hours, either as needed for pain or as regularly scheduled medications. The extended-release tablets (Oxycontin) are taken every 12 hours with or without food. The extended-release capsules (Xtampza ER) are taken every 12 hours with food; eat the same amount of food with each dose. Follow the directions on your prescription label carefully, and ask your doctor or pharmacist to explainany part you do not understand. Take oxycodone exactly as directed. If you are taking the extended-release tablets (Oxycontin), swallow the tablets one at a time with plenty of water. Swallow the tablet or right after putting it in your mouth. Do not presoak, wet, orlick the tablets before you put them in your mouth. Do not chew or crush extended-release tablets. If you have trouble swallowing extended-release capsules (Xtampza ER), you can carefully open the capsule and sprinkle the contents on soft foods such as applesauce, pudding, yogurt, ice cream, or jam, then consume the mixture immediately. Dispose of the empty capsule shells right away by flushing them down a toilet. Do not store the mixture for future use. If you have a feeding tube, the extended-release capsule contents can be poured into the tube. Ask your doctor how you should take the medication and follow these directions carefully. Your doctor may adjust your dose of oxycodone during your treatment, depending on how well your pain is controlled and on the side effects that you experience. Talk to your doctor about how you are feeling during your treatment with oxycodone. Tell your doctor if you feel that your pain is not controlled or if your pain increases, becomes worse, or if you have new pain or an increased sensitivityto pain during your treatment with oxycodone. Do not take more of it or take it more often than prescribed by your doctor. Do not stop taking oxycodone without talking to your doctor. If you stop taking oxycodone suddenly,you may experience withdrawal symptoms such as restlessness, watery eyes, runny nose, sneezing, yawning, sweating, chills, muscle or joint aches or pains, weakness, irritability, anxiety, depression,difficulty falling asleep or staying asleep, cramps, nausea, vomiting, diarrhea, loss of appetite, fast heartbeat, and fast breathing. Your doctor will probably decrease your dose gradually. Are there OTHER USES for this medicine? This medication may be prescribed for other uses; ask your doctor or pharmacist for more information. What SPECIAL PRECAUTIONS should I follow? Before taking oxycodone, ??? tell your doctor and pharmacist if you are allergic to oxycodone, any other medications, or anyof the ingredients in the oxycodone product you plan to take. Ask your pharmacist or check the Medication Guide for a list of the ingredients. ??? tell your doctor or pharmacist if you are taking thefollowing medications or have stopped taking them within the past two weeks: isocarboxazid (Marplan), linezolid (Zyvox), methylene blue, phenelzine (Nardil), selegiline (Emsam, Zelapar), or tranylcypromine (Parnate). ??? The following nonprescription or herbal products may interact with oxycodone: Negin's wort and tryptophan. Be sure to let your doctor and pharmacist know that you are taking these medications before you start taking oxycodone. Do not start these medications while taking oxycodone without discussing it with your healthcare provider. ??? tell your doctor if you have or have ever had any of the conditions mentioned in the IMPORTANT WARNING section, a blockage or narrowing of your stomach or intestines, or paralytic ileus (condition in which digested food does not move through the intestines). Your doctor may tell you not to take oxycodone. ??? Also tell your doctor if you have or have ever had low blood pressure; seizures; adrenal insufficiency (condition in which theadrenal glands do not produce enough of certain hormones needed for important body functions); seizures; urethral stricture (blockage of the tube that allows urine to leave the body), problems urinating; or heart, kidney, liver, pancreas, thyroid, or gall bladder disease. If you will be taking the extended-release tablets or extended-release capsules, also tell your doctor if you have or have ever had difficulty swallowing, diverticulitis (condition in which small pouches form in the intestinesand become swollen and infected), colon cancer (cancer that begins in the large intestine), or esophageal cancer (cancer that begins in the tube that connects the mouth and stomach). ??? tell your doctor if you are . You should not breastfeed while you are taking oxycodone. Oxycodone can cause shallow breathing, difficulty or noisy breathing, confusion, more than usual sleepiness, trouble , or limpness in breastfed infants. ??? you should know that this medication may decrease fertility in men and women. Talk to your doctor about the risks of taking oxycodone. ??? ifyou are having surgery, including dental surgery, tell the doctor or dentist that you are taking oxycodone. ??? you should know that this medication may make you drowsy. Do not drive a car, operate heavy machinery, or participate in any other possibly dangerous activities until you know how this medication affects you. ??? you should know that oxycodone may cause dizziness, lightheadedness, and fa inting when you get up too quickly from a lying position. To help avoid this problem, get out of bed slowly, resting your feet on the floor for a few minutes before standing up. ??? you should know that oxycodone may cause constipation. Talk to your doctor about changing your diet or using other medications to prevent or treat constipation while you are taking oxycodone. What SPECIAL DIETARY instructions should I follow? Unless your doctor tells you otherwise, continue your normal diet. What should I do IF I FORGET to take a dose? If you are taking oxycodone on a regular schedule, take the missed dose as soon as you remember it.However, if it is almost time for the next dose, skip the missed dose and continue your regular dosing schedule. Do not take a double dose to make up for a missed one. Do not take more than one dose of the extended- release tablets or capsules in 12 hours. What SIDE EFFECTS can this medicine cause? Oxycodone may cause side effects. Tell your doctor if any of these symptoms, are severe or do not go away: ??? dry mouth ??? stomach pain ??? drowsiness ??? flushing ??? headache ??? mood changes ??? Some side effects can be serious. If you experience any of these symptoms or those mentioned in the IMPORTANT WARNING section, call your doctor immediately or get emergency medical help: ??? changes in heartbeat ??? agitation, hallucinations (seeing things or hearing voices that do not exist), fever, sweating, confusion, fast heartbeat, shivering, severe muscle stiffness or twitching, loss of coordination, or diarrhea ??? nausea, vomiting, loss of appetite, weakness, or dizziness ??? inability to get or keep an erection ??? irregular menstruation ??? decreased sexual desire ??? chest pain ??? rash; i tching; hives; hoarseness; difficulty breathing or swallowing; or swelling of the face, mouth, tongue, lips, or throat ??? swelling of the hands, feet, ankles, or lower legs ??? seizures ??? extreme drowsiness If you experience a serious side effect, you or your doctor may send a report to the Food and Drug Administration's (FDA) MedWatch Adverse Event Reporting program online (https://www.fda.gov/Safety/MedWatch) or by phone ( ). Oxycodone may cause other side effects. Call your doctor if you have any unusual problems while youare taking this medication. What should I know about STORAGE and DISPOSAL of this medication? Keep this medication in the container it came in, tightly closed, and out of reach of children, andin a location that is not easily accessible by others, including visitors to the home. Store it at room temperature and away from light and excess heat and moisture (not in the bathroom). You must immediately dispose of any medication that is outdated or no longer needed through a medicine take-back program. If you do not have a take-back program nearby or one that you can access promptly, flush any medication that is outdated or no longer needed down the toilet so that others will not take it.Talk to your pharmacist about the proper disposal of your medication. It is important to keep all medication out of sight and reach of children as many containers (such as weekly pill minders and those for eye drops, creams, patches, and inhalers) are not child-resistant and young children can open them easily. To protect young children from poisoning, always lock safety caps and immediately place the medication in a safe location ??? one that is up and away and out of their sight and reach. https://www.upandaway.org What should I do in case of OVERDOSE? In case of overdose, call the poison control helpline at . Information is also available online at https://www.poisonhelp.org/help. If the victim has collapsed, had a seizure, has trouble breathing, or can't be awakened, immediately call emergency services at 911. While taking oxycodone, you should talk to your doctor about having a rescue medication called naloxone readily available (e.g., home, office). Naloxone is used to reverse the life-threatening effects of an overdose. It works by blocking the effects of opiates to relieve dangerous symptoms caused by high levels of opiates in the blood. Your doctor may also prescribe you naloxone if you are livingin a household where there are small children or someone who has abused street or prescription drugs. You should make sure that you and your family members, caregivers, or the people who spend time with you know how to recognize an overdose, how to use naloxone, and what to do until emergency medical help arrives. Your doctor or pharmacist will show you and your family members how to use the medication. Ask your pharmacist for the instructions or visit the director treasurer's website to get the instructions. If symptoms of an overdose occur, a caregiver or family member should give the first dose of naloxone, call 911 immediately, and stay with you and watch you closely until emergency medical help arrives.Your symptoms may return within a few minutes after you receive naloxone. If your symptoms return, the person should give you another dose of naloxone. Additional doses may be given every 2 to 3 minutes, if symptoms return before medical help arrives. Symptoms of overdose may include the following: ??? difficulty breathing ??? slowed or shallow breathing ??? excessive sleepiness ??? limp or weak muscles ??? narrowing or widening of the pupils ([place] in the eye) ??? cold, clammy skin ??? unable to respond or wake up ??? slowed heartbeat ??? unusual snoring What OTHER INFORMATION should I know? Keep all appointments with your doctor. Your doctor may order certain lab tests to check your body's response to oxycodone. Before having any laboratory test (especially those that involve methylene blue), tell your doctor and the laboratory personnel that you are taking oxycodone. This prescription is not refillable. If you continue to have pain after you finish the oxycodone, call your doctor. It is important for you to keep a written list of all of the prescription and nonprescription (yepo-zbi-pultswu) medicines you are taking, as well as any products such as vitamins, minerals, or otherdietary supplements. You should bring this list with you each time you visit a doctor or if you areadmitted to a hospital. It is also important information to carry with you in case of emergencies. This report on medications is for your information only, and is not considered individual patient advice. Because of the changing nature of drug information, please consult your physician or pharmacist about specific clinical use. The [place] [employer] represents that the information provided hereunder was formulated with a reasonable standard of care, and in conformity with professional standards in the field. The [place] [employer] makes no representations or warranties, express or implied, including, but not limited to, any implied warranty of merchantability and/or fitness for a particular purpose, with respect to such information and specifically disclaims all such warranties. Users are advised that decisions regarding drug therapy are complex medical decisions requiring the independent, informed decision of an appropriate health home care manager rn, and the information is provided for informational purposes only. The entire monograph for a drug should be reviewed for a thorough understanding of the drug's actions, uses and side effects. The [place] [employer] does not endorse or recommend the use of any drug.The information is not a substitute for medical care. AHFS?? Patient Medication Information???. ?? Copyright, 2023. The [employer] [employer]??, [address], [address], [place], [place]. All Rights Reserved. Duplication for commercial use must be authorized by [facility]. Selected Revisions: September 06, 2023. AHFS?? Patient Medication Information???. ?? Copyright, 2023 ?? * Mirna Moura MD: PERFORM Event Display: Discharge/Transfer Note Hospital Authored Date: [id number] Patient: ??ESQUIVEL, MARCIAL ? Age:??43 Years?Sex:??Female?:??1980?? Patient Information Discharge Location: [facility] Primary Care Physician: Nancy Bui MD Admit Date/Time: 03/11/24 11:57 Discharge Disposition Discharge Disposition: Home: No Services Discharge Diagnosis Acute right flank pain (R10.9) Hydroureteronephrosis (N13.30) Kidney stone (N20.0) Hypokalemia (E87.6) Hypertension (I10) _ Discharge Medications Cholecalciferol (cholecalciferol 50 mcg (2000 intl units) oral tablet, chewable)?1?tab(s)?50?Microgram?By Mouth?Daily Hydrochlorothiazide-Lisinopril (hydrochlorothiazide-lisinopril 12.5 mg-10 mg oral tablet)?1?tab(s)?By Mouth?Daily Ibuprofen (ibuprofen 800 mg oral tablet)?800?Milligram?1?tablet?By Mouth?3 times a day?as needed?for 10?Days?Pain , Moderate Oxycodone (oxyCODONE 5 mg oral capsule)?1?capsule?5?Milligram?By Mouth?Every 6 hours?as needed?as needed for pain?for 3?Days Tamsulosin (Flomax 0.4 mg oral capsule)?0.4?Milligram?By Mouth?Daily ? Quality Measures Tobacco Use Treatment:? Medications Started Ibuprofen Oxycodone Tamsulosin Allergies Allergies ?(Active and Proposed Allergies Only) Latex? (Severity: Unknown severity, Onset: Unknown) ?Reactions: Rash ? PCP Follow-Up/Heads-Up Please follow-up for kidney stone, obstructing and??needing??urologic procedure, needs follow-up with urology Objective Assessment and Plan This is a 43-year-old??female with past medical history as noted above, who currently presents to the hospital with??a negative??right flank pain.??She was noted on imaging??to have evidence of a right 4 mm obstructing calculus with severe right-sided hydroureteronephrosis.??She is now admitted forfurther management. ?? Acute right flank pain (R10.9) ?Grouped with??Hydroureteronephrosis (N13.30),??Kidney stone (N20.0) ? She presents with right-sided flank pain and on imaging has evidence of a 4 mm calculus in the mid right ureter with severe right-sided hydroureteronephrosis.??She had prior imaging from 2020 that showed similar size and appearance of stone, so this could represent ongoing obstruction??(less likely??as patient developed acute pain today) versus interval recurrence.??For now, we will maintain this patient on IV fluid hydration.??We will initiate her on Flomax therapy as well.?? Pending lithotripsy vs stent placement (in case of impaction) by urology, patient will be discharged home??today as long as there are no complications following the procedure Started on tamsulosin and??prn pain medications ?? Hypertension (I10) Continue home BP meds on discharge ? Vital Signs?? Temperature: 98.3 DegF (03/12/24 13:56:00) Temperature Route: Temporal (03/12/24 13:56:00) Pulse Rate:??52 bpm??Low (03/12/24 13:56:00) Respiratory Rate: 22 br/min (03/12/24 13:56:00) Systolic Blood Pressure: 115 mm Hg (03/12/24 13:56:00) Diastolic Blood Pressure: 74 mm Hg (03/12/24 13:56:00) Blood pressure sites: Arm, right (03/12/24 13:56:00) Mean Arterial Pressure: 88 mm Hg (03/12/24 13:56:00) Pulse Pressure: 52 mm Hg (03/12/24 11:00:00) Oxygen Saturation: 100 % (03/12/24 13:56:00) Mode of Delivery (Oxygen): Room air (03/12/24 13:56:00) Early Warning Score: 3 (03/12/24 14:01:11) ? Mobility & Ambulation Level Mobility & Ambulation Level?? No qualifying data available. ?? Therapeutic Activity Therapeutic Activities/Mobility/Balance?? No qualifying data available. ?? . Physical Exam General: Alert, in no acute cardiopulmonary distress. Mental Status: Oriented to person, place and time. Normal affect. Head: Normocephalic. Eyes: Pupils are equal, round and reactive to light. Extraocular muscles intact. Ear, Nose and Throat: Oropharynx clear, mucous membranes moist. Ears and nose without masses, lesions or deformities. Trachea midline. Neck: Supple, Full range of motion. Respiratory: Clear to auscultation and percussion. No wheezing, rales or rhonchi. Cardiovascular: Heart sounds normal. Regular rate and rhythm, no murmurs, rubs or gallops. Gastrointestinal: Abdomen soft, non-tender, non-distended. Normal bowel sounds. No pulsatile mass. No hepatosplenomegaly. Neurologic: Cranial nerves II-XII grossly intact. No focal neurological deficits. Moves all extremities spontaneously. Sensation intact bilaterally. Skin: No rashes or lesions. No petechiae or purpura. No edema. Musculoskeletal: No cyanosis or clubbing. No gross deformities. Normal range of motion. [facility] Pending Results Add On Lab Order ordered on 03/11/2024 Add On Lab Order ordered on 03/11/2024 HCG Urine ordered on 03/11/2024 Urinalysis w/hold for Urine Culture ordered on 03/11/2024 Follow-Up Appointments Added Follow Up ?Time Frame ?Comments Nancy Bui MD?1 week: call to discuss follow up visit Patient Instructions Please take pain medication as prescribed, as needed for pain control Please ensure you drink plenty of fluids to avoid dehydration Follow-up with [facility]??as instructed, their office will contact you regarding a follow-up visit Make an appointment to follow-up with your primary care physician after discharge Home Health Face to Face ^HomeHealthFTF Results Discharge Labs BLOOD COUNT & DIFF WBC 9.8 k/mm3 ()?? 03/12/2024 04:24 RBC 3.95 m/mm3 (Low)?? 03/12/2024 04:24 Hgb 11.5 Gm/dL (Low)?? 03/12/2024 04:24 Hct 35.0 % (Low)?? 03/12/2024 04:24 MCV 88.6 femtoliters ()?? 03/12/2024 04:24 MCH 29.1 pg ()?? 03/12/2024 04:24 MCHC 32.9 g/dL (Low)?? 03/12/2024 04:24 Platelet Count 285 k/mm3 ()?? 03/12/2024 04:24 RDW-SD 43.8 femtoliters ()?? 03/12/2024 04:24 MPV 9.8 femtoliters ()?? 03/12/2024 04:24 Nucleated RBC (Automated) 0.0 #/100 WBC'S ()?? 03/12/2024 04:24 Abs. NRBC 0.0 k/mm3 ()?? 03/12/2024 04:24 Abs. Neut 4.5 k/mm3 ()?? 03/12/2024 04:24 Abs. Lymph 4.1 k/mm3 (High)?? 03/12/2024 04:24 Abs. [place] 1.0 k/mm3 (High)?? 03/12/2024 04:24 Abs. Eo 0.2 k/mm3 ()?? 03/12/2024 04:24 Abs. Baso 0.0 k/mm3 ()?? 03/12/2024 04:24 Neut % 45.8 % ()?? 03/12/2024 04:24 Lymph % 41.5 % ()?? 03/12/2024 04:24 [place] % 10.5 % ()?? 03/12/2024 04:24 Eos % 1.5 % ()?? 03/12/2024 04:24 Baso % 0.4 % ()?? 03/12/2024 04:24 Imm Gran 0.3 % ()?? 03/12/2024 04:24 Abs. Imm Gran 0.0 k/mm3 ()?? 03/12/2024 04:24 ?? CHEM GENERAL Sodium 134 mmol/L ()?? 03/12/2024 04:24 Potassium 3.7 mmol/L ()?? 03/12/2024 04:24 Chloride 102 mmol/L ()?? 03/12/2024 04:24 Bicarbonate Level 23 mmol/L ()?? 03/12/2024 04:24 Anion Gap 9 ()?? 03/12/2024 04:24 Glucose Level 82 mg/dL ()?? 03/12/2024 04:24 BUN 20 mg/dL ()?? 03/12/2024 04:24 Creatinine-Blood 0.68 mg/dL ()?? 03/12/2024 04:24 Estimated GFR Creatinine 112 ML/MIN/1.73 M2 ()?? 03/12/2024 04:24 Calcium 8.8 mg/dL ()?? 03/12/2024 04:24 Alkaline Phosphatase 49 units/L ()?? 03/11/2024 16:00 Lipase 14 units/L ()?? 03/11/2024 16:00 AST (SGOT) 24 units/L ()?? 03/11/2024 16:00 ALT (SGPT) 15 units/L ()?? 03/11/2024 16:00 Bilirubin, Total 0.5 mg/dL ()?? 03/11/2024 16:00 Lactate 0.9 mmol/L ()?? 03/11/2024 16:00 ?? UA/URINALYSIS Appear/Color, Urine LIGHT YELLOW ()?? 03/11/2024 13:33 Specific [place], Urine 1.024 ()?? 03/11/2024 13:33 pH, Urine 6.5 ()?? 03/11/2024 13:33 Albumin, Urine TRACE (Abnormal)?? 03/11/2024 13:33 Glucose, Urine NEGATIVE ()?? 03/11/2024 13:33 Ketones, Urine 1+ (Abnormal)?? 03/11/2024 13:33 Bilirubin, Urine NEGATIVE ()?? 03/11/2024 13:33 Hemoglobin, Urine 2+ (Abnormal)?? 03/11/2024 13:33 Nitrite, Urine NEGATIVE ()?? 03/11/2024 13:33 Leukocyte, Urine NEGATIVE ()?? 03/11/2024 13:33 Urobilinogen NORMAL mg/dL ()?? 03/11/2024 13:33 WBC's, Urine 2 /HPF ()?? 03/11/2024 13:33 RBC's, Urine 47 /HPF (High)?? 03/11/2024 13:33 Squamous Epith 2 /HPF ()?? 03/11/2024 13:33 Mucus MODERATE /LPF ()?? 03/11/2024 13:33 ? URINE OTHER Urine, NEGATIVE (N)?? 03/11/2024 13:33 Est Creatinine Clearance 90.03 mL/min ()?? 03/12/2024 05:20 ? Blood Glucose Trend Glucose Level: 82 mg/dL (03/12/24 04:24:00) Glucose Level: 79 mg/dL (03/11/24 16:00:00) ? 40??minutes spent on discharge * Prema Da Silva RN: PERFORM Event Display: Patient Education Leaflets Authored Date: [id number] [facility] Smoke Free ?? 415 ? LIVING SMOKE FREE ?? Smoking is one of the hardest habits to break.?? It takes most smokers 5-6 tries before they finally quit. So, don???t give up.?? Millions of people have given up smoking and?? so can you! The benefits of quitting start right away and keep improving the longer you go without smoking: ? Improve your ability to breathe without coughing or shortness of breath ? Reduce your risk of lung cancer, heart disease, chronic lung disease ? Have more money in your pocket ? Have whiter teeth, fewer wrinkles and softer skin ? Have better smelling hair, breath, clothes, home and car ? Improve your sense of taste and smell TRIGGERS TO SMOKING RELAPSE KNOW WHY YOU SMOKE AND WHAT YOUR SMOKING TRIGGERS ARE.?? WRITE YOUR TRIGGERS DOWN AND LOOK AT THEM OFTEN. Understand or identify your personal triggers. Some triggers may include: ? Drinking or socializing ? Being around smoking and/or smokers ? After a meal or work break time ? In the car stressful situations or boredom or loneliness ? When you wake up DEVELOP COPING SKILLS DEVELOP AND USE COPING SKILLS. Quitting smoking is a big change.?? People will congratulate you and you have the right to be proud?? But at times you may miss smoking, so plan ahead to resist temptation. ?Ask for the support of your family and friends.?? Call a friend when you want to smoke. ? Avoid people or places that can trigger you to smoke.?? Ask others not to smoke around you. ? Spend time in places where you can???t smoke, such as a restaurant. ? Surround yourself with non-smokers. ? Remind yourself why you quit.?? Stop yourself from ???just one more?? . ? Recognize triggers and find a way to cope. ? Change your habits; go for a walk after meals instead of smoking. ? Save the cigarette money and reward yourself.? Exercise every day.?? This will reduce stress, improve your mood and keep weight stable or at a loss. ? INFORMATION ABOUT QUITTING GET SUPPORT. ?? Support programs can make an important difference, especially for the heavy smoker. ?QUITWORKS: Fax referrals to: ? [place] Smokers??? Helpline: o [place]ese: 1 (885) Quit-Now ( )?htttps://ma.quitlogix.org/en-us o Nepalese: 1 (294) -8- D??roberto ( )?https://ma.quitlogix.org/es-es ??? Quit Tips Line (24 hour recorded messages): www.[employer]manship.DailyDeal (quit smoking information & local quit smoking support programs) ? SMOKING CESSATION RESOURCES Additional Resources: ?? [place] [employer] ([facility]) ([place]) [place] [employer] Tobacco Quit-Line 7-138-JQTS-[facility] ( ); https://www.lungusa.org Deaf or Hearing Impaired 1 (664) ??? TDD - 3653 [place] [employer] (510) XOD-2119; www.cancer.org [place] [employer] ; www.heart.org QUITWORKS Fax referrals to: http://quitworks.[employer].org/ [facility] Start to Stop Program https://www.[employer] Social/minuteclinic/services/smoking-cessation ?? SMOKING CESSATION OPTIONS Acupuncture: ?? Flexible needles inserted into the skin to reduce the side effects of nicotine withdrawal. ?? Behavior Modification Program: ?? Helps you to understand your smoking history, reasons for smoking, set a target date to quit and plan how to resist the urge to smoke. ?? Hypnosis: ?? Hypnosis can help strengthen your motivation and reduce cravings for nicotine. ?? Nicotine Replacement Therapy (NRT): ?? Provides nicotine to help reduce the craving for nicotine and other withdrawal symptoms.?? This therapy can be provided by: ? Nicotine gum ? Nicotine inhalation device ? Nicotine lozenge ? Nicotine patch ?? Prescription Medications: bupropion sr (wellbutrin or zyban) or varenicline (chantix) ? Patient Care team information Care Team Personnel Name: Maurice Veliz NP Position: [facility] Associate Professional Member Role: Lifetime Consulting Provider Address: Address: [address] [place] [address]- Name: Nancy Bui MD Position: [facility] Resident Member Role: PCP Address: Address: [address] [place] [address] Name: Brittney Cotton RN Position: [facility] RN Member Role: Primary Care Nurse Name: Alisha Olivares RN Position: [facility] RN Member Role: Primary Care Nurse Care Team Related Persons Name: MADIHA WEBBER Address: home [address] [place] [address] Name: MANUELA WEBBER Address: [place] [address]
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
--- OUTSIDE RECORDS SUMMARY | 2024-03-25 13:13 | XMS_ITS | Continuity of Care Document ---
Author Organization [facility] Address [address] [place] [address]- Care Team Providers Care Winery Worker Name Role Phone Nancy Bui MD Primary Care Physician Encounter [facility] [place] Date(s): 03/06/24 - 03/06/[address] [address]- Discharge Disposition: A-D/C Home Attending Physician: Amrit Miguel MD Admitting Physician: Amrit Miguel MD Referring Physician: Not on Staff, Referring MD Allergies, Adverse Reactions, Alerts Substance Reaction Severity Status Latex Rash Active Immunizations Given and Recorded Vaccine Date Status Refusal Reason Influenza Virus Vaccine (oldterm) 1 02/14/22 Recor ded Influenza Virus Vaccine (oldterm) 2 04/03/07 Given SARS-CoV-2 mRNA (nnqfkzm-ensu-qomxd) vax 3 02/14/22 Recorded tetanus-diphtheria toxoids (Td) [...] as required by insurance, # 18 Gm, [id number], Tot. Refills 11, Maintenance, 01/16/23 11:54:00 EDT, Aerosol, Route to Pharmacy Electronically, [id number], [facility]... Start Date: 01/16/23 Status: Ordered Blood Pressure Monitor See Instructions, # 1 each, Maintenance, check daily and when symptons, 11/14/22 14:21:00 EDT, Supply, 160.02, cm, 11/14/22 14:10:00 EDT, Height, 93.7, kg, 04/03/22 7:07:00 EDT, Dry Weight Start Date: 11/14/22 Status: Ordered D3-50 oral capsule 1 capsule, By Mouth, Every week, # 13 capsule, 0 Refills, Maintenance, 02/07/24 11:33:00 EDT, [facility] #[id number], 160, cm, 02/05/24 20:33:00 EDT, Height, 100.2, [...] tablet, 0 Refills, Maintenance, 02/07/24 11:33:00 EDT, [facility] #[id number], 160, cm, 02/05/24 20:33:00 EDT, Height, 100.2, kg, 02/05/24 17:00:00 EDT, Dry Weight Start Date: 02/07/24 Status: Ordered hydrochlorothiazide-lisinopril 12.5 mg-10 mg oral tablet 1 tablet, By Mouth, Daily, # 30 tablet, 11 Refills, Maintenance, 02/06/24 9:28:00 EDT, Tablet, [facility] #[id number], Partial fill upon patient request if the prescription is for a schedule II opioid drug., 1 tablet By Mouth Daily, 160, cm, 01/22... Start Date: 02/06/24 Status: Ordered ibuprofen 800 mg oral tablet 800 mg, 1, tablet, By Mouth, Every 8 hours, # 40 tablet, Refills 0, Tot. Refills 0, Maintenance, 04/03/22 10:39:00 EDT, Route to Pharmacy Electronically, [facility] #[id number], Partial fill upon patient request if the prescription is for a sched... Start Date: 04/03/22 Status: Ordered Tylenol 325 mg oral capsule 2 capsule = 650 mg, By Mouth, Every 4 hours, PRN as needed for pain, # 50 capsule, 0 Refills, Maintenance, 04/18/22 10:45:00 EDT, Capsule, [facility] #[id number], Partial fill upon patient request if the prescription is for a schedule II opioid d... Start Date: 04/18/22 Status: Ordered Voltaren 1% topical gel 1 application, Topically, 4 times a day, PRN for pain, # 100 Gm, 2 Refills, Maintenance, 10/16/22 10:30:00 EDT, Gel, [facility] #[id number], Partial fill upon patient request if the [...] L removed 07/06/14, had stone extracted at [facility] 6pt admitted to [facility] in Jun 2013, removal or renal calculus, f/u with Dr abdul of urology 7CT at [facility] 06/17/14- 3 mm L ureteral calculus mid distal junction with mild- mod L hydoureter/hydronephrosis, nonobstructing punctate calculi R lower renal pole, and L interpole calculus 8With aura 9very minimal scoliosis- seen on 03/25/12 x-ray, also minimal loss of disc space height L5-S1 Vital Signs Most recent to oldest [Reference Range]: 1 2 3 Height 160 cm (03/06/24 1:06 PM) 160 cm (03/06/24 11:55 AM) 160 cm (03/06/24 11:08 AM) Weight 95.4 kg (03/06/24 1:06 PM) 95.4 kg (03/06/24 11:55 AM) 95.4 kg (03/06/24 11:08 AM) Oxygen Saturation [94-100 %] 100 % (03/06/24 1:06 PM) 99 % (03/06/24 11:08 AM) Pulse Rate [55-90 bpm] 60 bpm (03/06/24 1:06 PM) 67 bpm (03/06/24 11:08 AM) Body Mass Index [18.5-24.99 kg/m2] 37.27 kg/m2 *>HHI* (03/06/24 1:06 PM) 37.27 kg/m2 *>HHI* (03/06/24 11:08 AM) Blood Pressure [90-138/55-84 mm Hg] 141/81mm Hg *H* (03/06/24 1:06 PM) 127/90mm Hg (03/06/24 11:08 AM) Respiratory Rate [16-30 br/min] 21 br/min (03/06/24 1:06 PM) 18 br/min (03/06/24 11:08 AM) Temperature [96.8-100.4 DegF] 98.2 DegF (03/06/24 11:08 AM) Mode of Delivery (Oxygen) Room air (03/06/24 1:06 PM) Room air (03/06/24 11:08 AM) Blood pressure sites Arm, right (03/06/24 1:06 PM) Arm, left (03/06/24 11:08 AM) Temperature Route Oral (03/06/24 11:08 AM) Dry Weight 95.4 kg (03/06/24 1:06 PM) 95.4 kg (03/06/24 11:55 AM) 95.4 kg (03/06/24 11:08 AM) Weight Obtained Via Patient/family state d (03/06/24 11:08 AM) Dry Weight Obtained Via Patient/family s tated (03/06/24 11:08 AM) Social History Social History Type Response Tobacco Use: 4 or less cigar ettes(less than 1/4 pack)/day in last 30 days. Interested in cessation: Yes. Sex EKG study * Event Display: ECG 12-Lead Authored Date: Please click on pdf link to open report * Event Display: ECG 12-Lead Authored Date: Ventricular Rate: 62 BPM Atrial Rate: 62 BPM P-R Interval: 152 ms QRS Duration: 88 ms Q-T Interval: 398 ms QTC Calculation(Bazett): 403 ms P [place]: 20 degrees R [place]: 31 degrees T [place]: 29 degrees Normal sinus rhythm Anteroseptal infarct (cited on or before 05-FEB-2024) Abnormal ECG When compared with ECG of 05-FEB-2024 17:06, No significant change was found Confirmed by Steve Javed ([id number]) on 03/06/2024 12:48:38 PM [place]: Steve Javed Patient Care team information Care Team Personnel Name: Maurice Veliz NP Position: [facility] Associate Professional Member Role: Lifetime Consulting Provider Address: Address: [address] [place] [address]- Name: Nancy Bui MD Position: [facility] Resident Member Role: PCP Address: Address: [address] [place] [address] [place] [address]- Name: Marshall PENNINGTON, Alisha Bundy Position: S RN Member Role: Primary Care Nurse Care Team Related Persons Name: WEBBERMADIHA Address: [address] [address] Name: MANUELA WEBBER Address: [place] [address]
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
== END 2024-03-25 14:00 | disposition home or self-care (01) ==
LOC: HO.HBST 13:11
PROVIDERS: Visit Provider Counselor Mental Health
DX: F43.25 Adjustment disorder with mixed disturbance of emotions and conduct (principal)
CPT/HCPCS: 90791

== ENCOUNTER 2024-04-01 15:08 | Outpatient (AMB) | payer OTHER, SELFPAY ==
--- NOTE | 2024-04-01 15:20 | MHC.OFFVISWM ---
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 Allergies latex Allergy (Intermediate, Verified 04/01/24 15:27) rash Medication List - Last Reconciled 04/01/24 by KAYLA Cabrera albuterol sulfate 90 mcg/actuation (Ventolin HFA) 2 puffs inhalation QID PRN cholecalciferol (vitamin D3) (Vitamin D3) 25 mcg PO DAILY cyanocobalamin (vitamin B-12) 500 mcg PO DAILY iron,carbonyl-vitamin C 65 mg iron- 125 mg (Vitron-C) 1 tab PO DAILY lisinopril-hydrochlorothiazide 10-12.5 mg 1 tab PO DAILY thiamine HCl (vitamin B1) 100 mg PO DAILY 90 days vitamin A palmitate 3,000 mcg PO DAILY 90 days HPI Comments Details: Patient is a pleasant 43-year-old female who returns to the office today in follow-up. She initiated the Surgical weight loss program on 02/26/2024 with a weight of 212.8 lb and a BMI of 39. Weight today is 206.8 lb with a BMI of 37.9. This corresponds to a 6 lb weight loss or 2.8% total body weight loss. She states she was [place] [facility] [place] 3 days in mid February. Bedrest until 03/17 due to stent placement, removed on 03/16/24. She states she has been following the righti dominique meal plan: isopure 1 scoop in 8 oz another shake protein bar meal 7 forks protein and 7 forks veg bar drinking 80 oz water exercise plan: stationary bike at home [address] 7 days per week but none since the stent [facility] Surgical History (Updated 02/26/24 @ 16:06 by KAYLA Cabrera) Hx of tubal ligation Hx of umbilical hernia repair Social History Alcohol intake: never Patient Tobacco Use Status: Never used Tobacco Tobacco use type: Cigarette Cigarettes Per Day: 4 Physical Exam Const General: healthy appearing and no acute distress Resp Effort & Inspection: normal respiratory effort Auscultation: clear to auscultation bilaterally Cardio Rate: regular rate Rhythm: regular rhythm GI Auscultation: normal bowel sounds Extrem General: Yes normal to inspection Assessment & Plan Assessment & Plan (1) Obesity (BMI 30-39.9): Code(s): E66.9 - Obesity, unspecified Category: Medical Plan: Overall making progress. She did have a setback due to nephrolithiasis requiring admission to the hospital. I have encouraged her to continue to follow the dominique exactly. Encouraged to text weekly with her weight. Encouraged to quit smoking. Encouraged to resume stationary bike as she had been doing. We will have her return to the office in approximately 1 month.
[2024-04-01 15:30] VITALS: BP 139/70; PULSE 80; TEMP 36.4; O2SAT 96; BMI 37.8
== END 2024-04-01 15:44 | disposition home or self-care (01) ==
PROVIDERS: Visit Provider Physician Assistant Surgical
DX: E66.812 Obesity, class 2 (principal); Z68.37 Body mass index [BMI] 37.0-37.9, adult
CPT/HCPCS: 99213

== ENCOUNTER → 2024-04-01 15:08 | Outpatient (BNVA) | payer OTHER, SELFPAY | PROVIDERS: Visit Provider Physician Assistant Surgical | DX: E66.9 Obesity, unspecified (principal); Z68.37 Body mass index [BMI] 37.0-37.9, adult | CPT/HCPCS: 99212 ==